=== PATIENT | male | born 1935 | race Caucasian/White ===

== ENCOUNTER → 2016-05-18 | Outpatient (CLI) | payer MEDICARE ==
[~2016-05-18] MED LIST: CLARITIN 10MG T10 MG PO; FLONASE 50 MCG16 GM; LIDODERM1 EACH TP
--- NOTE | 2016-05-18 16:11 | RADIOLOGY REPORT PS360 ---
KUB (SINGLE VIEW) HISTORY: HEMATURIA,RT FLANK PAIN ORDERING PHYSICIAN: Jerrell Simpson MD PATIENT AGE: 80 years COMPARISON: None FINDINGS: Nonspecific nonobstructive bowel gas pattern. There are surgical clips in the right upper quadrant. No obvious renal or ureteral calculi evident. Faint calcification noted over both upper quadrants and may be vascular or even possibly pancreatic on the left. There is curvilinear calcification projecting to the left of the lumbar spine at the L3-L4 level consistent with an aortic aneurysm. CT suggested for confirmation. No other significant anomalies are evident. IMPRESSION: 1. Suspect abdominal aortic aneurysm which may be confirmed with CT. 2. No obvious ureteral calculi. 3. Nonspecific calcifications over the upper abdomen bilaterally
== END ==
LOC: RAD 15:29
DX: R31.9 Hematuria, unspecified (principal); R10.9 Unspecified abdominal pain

== ENCOUNTER 2016-06-25 10:55 | Emergency (ER) | payer MEDICARE ==
[~2016-06-25] VITALS: Ht 180.3 cm; Wt 81.6 kg
[2016-06-25] MEDS ORDERED: LIDODERM1 EACH TP (11:38)
[2016-06-25] MEDS ORDERED: CLARITIN 10MG T10 MG PO (11:38)
[2016-06-25] MEDS ORDERED: FLONASE 50 MCG16 GM (11:38)
--- NOTE | 2016-06-25 11:43 | Urgent Treatment Center Report ---
See Addendum History of Present Issue Date/Time Seen by Provider 06/25/16 1117 Visit Reason Pt arrived:Walked Presenting Problem:PT C/O SINUS INFECTION AND WORSENING PAIN FROM SHINGLES. DR SIMPSON HAS REQUESTED PT GET LIDOCAINE PAIN PATCHES Location if Accident: Onset of symptoms date/time:/ or onset unknown for:MEDICAL HX UNKNOWN Have you (or family members/close friends) recently traveled outside the [place]? N If Yes, where/when: Have you had exposure to infectious disease within the past month? TB? Other? Specify: here w/ granddaughter requesting lidocaine patch prescription "if that isn't over the counter" and evaluation of "cold symptoms". Shingles right flank x 4-5 weeks. Dx and treated by PCP, Dr. Simpson. Percocet and gabapentin causing too much drowsiness. "Dr. Simpson had mentioned lidocaine patch once lesions healed better". Lesions improving. No more sores. "Just redness and the pain". Has tylenol #3 PRN chronic knee pain. Helps "if he takes it". 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 Nasal congestion, rhionrrhea, scratchy throat, ear pressure, occasional cough, PND started 2 days ago. Hasn't really taken or tried anything for symptoms. Has flonase "but it is too old". No known sick contacts. Denies fevers, aches, chills. Unsure about flu vaccine. Source patient, family Exam Limitations no limitations History Medical History General CAD? No Angina: No MD: No Hypertension? No Hyperlipidemia? No CHF? Yes DVT? No PE? No COPD? No Asthma? No Anemia? No GERD? No Gastric ulcers? No GI Bleed? No Hernia? No Thyroid Problems? No Hypothyroidism? No CVA? No Seizures? No Diabetes? No Renal Insuffiency? No UTI? No Stones? No BPH? No GB Disease: Yes Nephritic Syndrome? No Asplenia? No Hepatitis? No Sickle Cell Disease? No Arthritis? No Migraines? No Cataracts? No Glaucoma? No MRSA? No HIV? No TB? No Anxiety? No Depression? No Cancer? No More? 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 denies: ear discharge. Respiratory denies shortness of breath, denies wheezing Cardiovascular denies palpitations Gastrointestinal denies no symptoms reported Musculoskeletal see HPI Skin see HPI Psychiatric/Neurological tingling (associated w/ shingles pain), denies weakness Physical Exam Vital Signs Vital Signs Date Time Temp Pulse Resp B/P Pulse O2 O2 Flow FiO2 Ox Delivery Rate 06/25 1149 97.9 70 16 137/54 91 06/25 1104 97.9 70 16 137/54 91 General Appearance normal appearance, no apparent distress, playful (laughing, cutting up, joking) Eye Exam - bilateral eye normal exam Ear, Nose, Throat normal ENT inspection (x/ nasal congestion) Neck non-tender, supple Respiratory Status Yes: non productive cough. No: respiratory distress. Lung Sounds anterior: lungs clear. posterior: lungs clear. bilateral: lungs clear. Cardiovascular regular rate/rhythm, no murmur Extremities normal range of motion Neurologic alert Skin shingles, pink rash right mid flank wrapping from chest to spine, no lesions, no scabbing, consistent w/ resolving shingles, tender to touch, no sign of infection Lymphatic no adenopathy (cervical) Medical Decision Making LABS/Meds/Orders Pt receiving controlled substance in ED? No Departure Departure Time of Disposition 1132 Disposition DC Home or Self Care(routine) Clinical Impression Primary Impression: Shingles (herpes zoster) polyneuropathy Secondary Impressions: Upper respiratory infection, viral Condition STABLE Referrals Calvin PADILLA,Jerrell Ladd. Follow up immediately for new or worsening symptoms OR no noticeable improvement over the next 48-72 hours. Patient Instructions DI for Shingles, DI for Viral Upper Respiratory Infection - - Adult, Lidocaine Transdermal Patch Additional Instructions warm salt water gargles sleep elevated humidifier/vaporizer flonase 2 sprays each nostril daily but may take 2-3 days to notice improvement with it. Use caution w/ ibuprofen due to age. Tylenol 650mg every 4-6 hours is ok. Tylenol is in percocet so if taking percocet or tylenol with codeine, be careful about the amount you use. Follow up with Dr. Simpson if pain persist and/or is not improving Discharge Counseling Counseled pt/family regarding diagnosis, medications/RX, home care, follow up needs Prescriptions Current Visit Scripts Fluticasone Propionate (Flonase 50 Mcg Nasal [place]) 2 SPRAY NA DAILY #1 BOT Loratadine (Claritin 10MG) 10 MG PO DAILY #30 TAB Lidocaine (Lidoderm) 1 EACH TP Q12HP #14 PATCH apply only 2 intact skin, cover most painful area, cut 2 size, use smallest effective amt for shortest effective duration at 1548
[2016-06-25 11:49] VITALS: BP 137/54
== END 2016-06-25 11:49 | disposition home or self-care (01) ==
LOC: UTC
DX: B02.23 Postherpetic polyneuropathy (principal); J06.9 Acute upper respiratory infection, unspecified